=== PATIENT | female | born 1990 | race Caucasian/White ===

== ENCOUNTER → 2024-12-26 11:37 | Outpatient (CLI) | payer OTHER, SELFPAY ==
--- NOTE | 2024-12-26 11:38 | DI.US.S_ITS ---
PROCEDURE: US PELVIC COMPLETE INDICATIONS: heavy prolonged menstrual bleeding TECHNIQUE: Real-time scanning was performed of the pelvic organs, with image documentation. Additional endovaginal scanning was necessary due to incomplete visualization of the adnexal and endometrial structures by transabdominal scanning. COMPARISON: None. FINDINGS: Uterus: Uterus is anteverted and normal in size at 7.7 x 5.5 x 3.6 cm. The myometrium is mildly heterogeneous. The endometrium measures 3.6 mm combined thickness. Small fluid at the site versus prominent nabothian cyst. Ovaries: The right ovary measures 5.8 x 3.5 x 2.9 cm, with a calculated ovarian volume of 30.7 cc. Right ovarian simple cyst measuring 4.0 x 3.2 x 2.6 centimeters. The left ovary measures 2.6 x 1.8 x 1.7 cm, with a calculated ovarian volume of 4.2 cc. The ovaries have a normal sonographic appearance. Less than 12 follicles can be seen in each ovary. No adnexal masses are seen. Other: Small amount of simple free fluid within the posterior cul-de-sac and anterior to the uterus, may be physiologic. IMPRESSION: Endometrium is normal in thickness measuring 3.6 millimeters. Small fluid versus prominent nabothian cysts at the site. Right ovarian simple cyst measuring 4.0 centimeters. We strive to produce accurate, complete, and clear reports of imaging services. To assist us in improving patient care, this report was composed using standard report templates and voice recognition software. Therefore, it may contain abnormal punctuation, insertions and/or omissions. Occasional wrong-word or sound-alike substitutions may occur. Though we review the report and make efforts to correct it, we do recommend that the report be read carefully in proper context to recognize any text inaccuracies. Dictated by: Israel Deng M.D. on 12/26/2024 at 13:15 Approved by: Israel Deng M.D. on 12/26/2024 at 13:26
== END ==
DX: N92.0 Excessive and frequent menstruation with regular cycle (principal); N92.5 Other specified irregular menstruation; N83.201 Unspecified ovarian cyst, right side
CPT/HCPCS: 76830; 76856